=== PATIENT | female | born 1970 | race Caucasian/White ===

== ENCOUNTER 2016-12-14 00:30 | Emergency (ER) | payer SELFPAY ==
[2016-12-14] MEDS ORDERED: Sulfameth/Trimethoprim DS 800-160mg TAB ONE (07:23)
--- NOTE | 2016-12-14 08:20 | RAD ---
PORTABLE CHEST ONE VIEW: Date: 12-14-16 Time: 7:44 a.m. History: Medical screening. FINDINGS: The heart size is normal. The lungs are expanded without focal areas of consolidation, pneumothorax, denisse pulmonary edema or pleural effusions. IMPRESSION: No acute process. POS: [facility]
== END 2016-12-14 09:10 | disposition home or self-care (01) ==
LOC: MADERS 00:30
DX: F31.9 Bipolar disorder, unspecified (principal); I10 Essential (primary) hypertension; N39.0 Urinary tract infection, site not specified; F25.9 Schizoaffective disorder, unspecified; F17.210 Nicotine dependence, cigarettes, uncomplicated
CPT/HCPCS: 71010